=== PATIENT | male | born 1995 | race Caucasian/White ===

== ENCOUNTER 2017-09-30 03:57 | Emergency (ER) | payer MEDICAID ==
[~2017-09-30] VITALS: Ht 172.7 cm; Wt 93.9 kg
[2017-09-30 04:05] VITALS: Ht 172.7 cm; Wt 93.9 kg
[2017-09-30 04:48] LABS: CHLORIDE SERUM 104 mmol/L (98-107); GFR1 > 60 mL/min; GLUCOSE SERUM 125 mg/dL (74-106); POTASSIUM SERUM 3.5 mmol/L (3.5-5.1); SODIUM SERUM 140 mmol/L (136-145)
[2017-09-30 05:00] LABS: BASOPHIL % 0.2 % (0-2); PLATELET COUNT 195 x10^3mcL (130-400); RED CELL DISTRIBUTION WIDTH 12.7 % (11.5-14.5)
[2017-09-30 05:01] LABS: ALBUMIN 3.9 g/dL (3.4-5.0); ALKALINE PHOSPHATASE 88 U/L (46-116); ALT/SGPT 41 U/L (16-63); AST/SGOT 38 U/L (15-37); BILIRUBIN TOTAL 0.57 mg/dL (0.20-1.00); T4(THYROXINE) 16.2 ug/dL (4.7-13.3); TOTAL PROTEIN, SERUM 7.6 g/dL (6.4-8.2)
[2017-09-30 05:28] LABS: AMPHETAMINE QUAL UR NONE DETECTED (NEG <=1000)
[2017-09-30 06:30] VITALS: BP 118/68
== END 2017-09-30 06:30 | disposition home or self-care (01) ==
LOC: ED 03:57
PROVIDERS: Emergency Medicine
DX: F41.9 Anxiety disorder, unspecified (principal)
CPT/HCPCS: 83880; G0480; J7030